=== PATIENT | male | born 1975 | race American Indian/Alaskan Native ===

== ENCOUNTER 2018-10-30 18:35 | Emergency (ER) | payer SELFPAY ==
[2018-10-30] MEDS ORDERED: NACL 0.9% 1000 ML 1,000 ML IV ONE (18:41)
[2018-10-30 19:06] LABS: Basophils # (Auto) 0.1 K/mm3 (0.0-0.1); Eosinophils % (Auto) 0.2 % (0.0-4.3); Hematocrit 39.7 % (35.5-45.6); Hemoglobin 13.7 gm/dl (11.8-15.2); Lymphocytes # (Auto) 2.2 K/mm3 (1.2-5.4); Lymphocytes % (Auto) 18.7 % (13.4-35.0); Mean Corpuscular HGB Conc 35 % (32-34); Mean Corpuscular Hemoglobin 31 pg (28-32); Mean Corpuscular Volume 88 fl (84-94); Monocytes # (Auto) 0.6 K/mm3 (0.0-0.8); Monocytes % (Auto) 4.7 % (0.0-7.3); Platelet Count 350 K/mm3 (140-440); Red Blood Count 4.51 M/mm3 (3.65-5.03); Red Cell Distribution Width 12.8 % (13.2-15.2)
[2018-10-30 19:21] LABS: Alanine Aminotransferase 46 units/L (7-56); Albumin 4.9 g/dL (3.9-5); BUN/Creatinine Ratio 7; Blood Urea Nitrogen 7 mg/dL (9-20); Calcium 9.6 mg/dL (8.4-10.2); Hemolysis Index 5
[2018-10-30] MEDS ORDERED: ZOFRAN IV ONE (19:37)
[2018-10-30] MEDS ORDERED: DILAUDID IV ONE (19:37)
[2018-10-30] MEDS ORDERED: TORADOL IV ONE (19:37)
--- NOTE | 2018-10-30 19:38 | Emergency Department Report ---
ED General Adult HPI - General Chief complaint: Abdominal Pain Stated complaint: FLANK PAIN Time Seen by Provider: 10/30/18 19:37 Source: patient, RN notes reviewed Mode of arrival: Ambulatory Limitations: No Limitations - History of Present Illness Initial comments: This is a 44-year-old gentleman who is not known to this provider previously, but does not have a local primary care doctor, who denies chronic medical conditions, who presents to the ER with a complaint of nontraumatic right-sided back and flank pain. It started a few hours ago. It is intermittent. It radiates down to the right flank. There is nausea, vomiting, sweating. Patient thinks he may have had a fever, but does not have a documented fever per se. He denies testicular pain, and urinary symptoms. He denies headache, neck pain, chest pain, extremity weakness, numbness. He reports that he feels very anxious, he is not sure if he's ever had an episode of renal colic in the past. -: Gradual Radiation: flank Consistency: intermittent Improves with: none Worsens with: none Associated Symptoms: diaphoresis, fever/chills, loss of appetite, malaise, nausea/vomiting, weakness. denies: confusion, chest pain, cough, headaches, rash, seizure, shortness of breath, syncope - Related Data Previous Rx's Medication Instructions Recorded Last Taken Type Acetaminophen [Tylenol Arthritis] 650 mg PO Q6HR PRN #30 tablet.er 10/30/18 Unknown Rx Ketorolac [Toradol] 10 mg PO Q6H PRN #20 tablet 10/30/18 Unknown Rx Ondansetron [Zofran Odt] 4 mg PO Q8HR PRN #20 tab.rapdis 10/30/18 Unknown Rx Tamsulosin [Flomax] 0.4 mg PO QDAY #30 cap 10/30/18 Unknown Rx Allergies Allergy/AdvReac Type Severity Reaction Status Date / Time No Known Allergies Allergy Unverified 10/30/18 18:41 ED Review of Systems ROS: Stated complaint: FLANK PAIN Other details as noted in HPI Constitutional: fever, weakness Eyes: denies: eye discharge ENT: denies: epistaxis Respiratory: denies: cough Cardiovascular: denies: chest pain Gastrointestinal: abdominal pain, nausea, vomiting Genitourinary: denies: testicular pain Musculoskeletal: back pain Skin: denies: lesions Neurological: weakness Psychiatric: anxiety ED Past Medical Hx - Surgical History Past Surgical History?: No - Social History Smoking Status: Never Smoker - Medications Home Medications: Home Medications Medication Instructions Recorded Confirmed Last Taken Type Acetaminophen [Tylenol Arthritis] 650 mg PO Q6HR PRN #30 tablet.er 10/30/18 Unknown Rx Ketorolac [Toradol] 10 mg PO Q6H PRN #20 tablet 10/30/18 Unknown Rx Ondansetron [Zofran Odt] 4 mg PO Q8HR PRN #20 tab.rapdis 10/30/18 Unknown Rx Tamsulosin [Flomax] 0.4 mg PO QDAY #30 cap 10/30/18 Unknown Rx ED Physical Exam - General Limitations: No Limitations General appearance: alert, in distress - Head Head exam: Present: atraumatic, normocephalic - Eye Eye exam: Present: normal appearance - ENT ENT exam: Present: normal exam, normal orophraynx, mucous membranes moist, normal external ear exam - Neck Neck exam: Present: normal inspection, full ROM. Absent: tenderness, meningismus - Respiratory Respiratory exam: Present: normal lung sounds bilaterally. Absent: respiratory distress, wheezes, rales, rhonchi, stridor, chest wall tenderness, decreased breath sounds - Cardiovascular Cardiovascular Exam: Present: normal rhythm, tachycardia, normal heart sounds. Absent: systolic murmur, diastolic murmur, rubs, gallop - GI/Abdominal GI/Abdominal exam: Present: soft, tenderness, other (there is right flank tenderness.). Absent: distended, guarding, rebound, rigid, pulsatile mass - Rectal Rectal exam: Present: deferred - exam: Present: normal inspection, other (there is no testicular tenderness. There is normal testicular lie bilaterally. There is normal cremasteric reflex bilaterally.). Absent: testicular tenderness External exam: Present: normal external exam, other (chaperoned by nurse Julisa Price) - Extremities Exam Extremities exam: Present: normal inspection, full ROM, other (2+ pulses noted in the bilateral upper, lower extremities. Compartments soft. No long bony tenderness. The pelvis is stable.). Absent: pedal edema, joint swelling, calf tenderness - Back Exam Back exam: Present: normal inspection, full ROM, CVA tenderness (R). Absent: tenderness, CVA tenderness (L), muscle spasm, paraspinal tenderness, vertebral tenderness - Neurological Exam Neurological exam: Present: alert, oriented X3, other (Extraocular movements intact. Tongue midline. No facial droop. Facial sensation intact to light touch in the V1, V2, V3 distribution bilaterally. 5 and 5 strength in 4 extremities.. Sensation is intact to light touch in 4 extremities.). Absent: motor sensory deficit - Psychiatric Psychiatric exam: Present: normal affect, normal mood - Skin Skin exam: Present: warm, dry, intact, normal color. Absent: rash ED Course Vital Signs 10/30/18 10/30/18 10/30/18 18:37 20:00 20:30 Temperature 97.6 F Pulse Rate 115 H 110 H 109 H Respiratory 19 21 Rate Blood Pressure 149/88 127/81 127/86 O2 Sat by Pulse 96 99 99 Oximetry 10/30/18 10/30/18 21:00 21:30 Temperature Pulse Rate 105 H 106 H Respiratory 16 20 Rate Blood Pressure 140/93 140/93 O2 Sat by Pulse 100 100 Oximetry - Reevaluation(s) Reevaluation #1: 10/30/18 20:13 Differential diagnosis, including but not limited to: Renal colic, perforated viscus, AAA Assessment and plan: 43-year-old male with right-sided flank pain, CVA tenderness, nausea, hypertension, suspect initial episode of renal colic. Laboratory studies reviewed and appreciated, noncontrast CT scan of the abdomen and pelvis is ordered, urinalysis is pending. Reevaluation #2: 10/30/18 21:20 Patient reports feeling much improved. His belly is soft on repeat exam. He is currently playing on a cellular phone, and speaking to a friends/family member about automobile interests. Noncontrast CT scan of the abdomen and pelvis confirms right-sided renal colic, with stone in the bladder, likely recently passed from the right ureter. We are currently awaiting urinalysis, and the patient is currently tolerating liquid feeds. Reevaluation #3: 10/30/18 22:17 Resting comfortably and in no acute distress. Tolerating liquid feeds. Multiple requests made by this provider for urinalysis, urine sample. We are currently awaiting a urine sample. Reevaluation #4: 10/30/18 22:42 Urinalysis, consistent with infectious etiology. We will discharge patient at this time. Patient has been reevaluated multiple times while in this department, appears to be quite comfortable, tolerating liquid feeds, playing on a cellular phone, he is medically suitable to follow up with an outpatient urologist. ED Medical Decision Making - Lab Data Result diagrams: 10/30/18 18:57 10/30/18 18:57 Vital Signs 10/30/18 18:37 Temperature 97.6 F Pulse Rate 115 H Blood Pressure 149/88 O2 Sat by Pulse 96 Oximetry Lab Results 10/30/18 10/30/18 10/30/18 Range/Units 18:57 18:57 19:41 WBC 11.9 H (4.5-11.0) K/mm3 RBC 4.51 (3.65-5.03) M/mm3 Hgb 13.7 (11.8-15.2) gm/dl Hct 39.7 (35.5-45.6) % MCV 88 (84-94) fl MCH 31 (28-32) pg MCHC 35 H (32-34) % RDW 12.8 L (13.2-15.2) % Plt Count 350 (140-440) K/mm3 Lymph % (Auto) 18.7 (13.4-35.0) % Ector % (Auto) 4.7 (0.0-7.3) % Eos % (Auto) 0.2 (0.0-4.3) % Baso % (Auto) 1.0 (0.0-1.8) % Lymph # 2.2 (1.2-5.4) K/mm3 Ector # 0.6 (0.0-0.8) K/mm3 Eos # 0.0 (0.0-0.4) K/mm3 Baso # 0.1 (0.0-0.1) K/mm3 Seg Neutrophils % 75.4 H (40.0-70.0) % Seg Neutrophils # 9.0 H (1.8-7.7) K/mm3 Sodium 141 (137-145) mmol/L Potassium 3.2 L (3.6-5.0) mmol/L Chloride 99.4 (98-107) mmol/L Carbon Dioxide 26 (22-30) mmol/L Anion Gap 19 mmol/L BUN 7 L (9-20) mg/dL Creatinine 1.0 (0.8-1.5) mg/dL Estimated GFR > 60 ml/min BUN/Creatinine Ratio 7 % Glucose 153 H (75-100) mg/dL Calcium 9.6 (8.4-10.2) mg/dL Magnesium 2.10 (1.7-2.3) mg/dL Total Bilirubin 0.30 (0.1-1.2) mg/dL AST 36 (5-40) units/L ALT 46 (7-56) units/L Alkaline Phosphatase 63 (35-129) units/L Total Creatine Kinase 555 H (55-170) units/L Total Protein 8.1 (6.3-8.2) g/dL Albumin 4.9 (3.9-5) g/dL Albumin/Globulin Ratio 1.5 % - Radiology Data Radiology results: pending Critical care attestation.: If time is entered above; I have spent that time in minutes in the direct care of this critically ill patient, excluding procedure time. ED Disposition Clinical Impression: Renal colic on right side Disposition: DC-01 TO HOME OR SELFCARE Is pt being admited?: No Does the pt Need Aspirin: No Condition: Good Instructions: Renal Colic (ED) Additional Instructions: Symptoms are likely due to kidney stone on the right-hand side. Stone is currently in the bladder. It is likely to pass on its own. Take the medications as needed/directed. Drink 6-8 cups of water per day. CT scan also demonstrated potential fatty changes in the liver, therefore, patient should limit intake of alcohol, and fatty foods. Follow-up with the urologist or primary care doctor within the next month. Return to the ER right away with recurrent pain, lethargy, projectile vomiting, change in mental status, confusion, inability to speak, inability to breathe. Prescriptions: Acetaminophen [Tylenol Arthritis] 650 mg PO Q6HR PRN #30 tablet.er PRN Reason: Pain Ketorolac [Toradol] 10 mg PO Q6H PRN #20 tablet PRN Reason: Pain Ondansetron [Zofran Odt] 4 mg PO Q8HR PRN #20 tab.rapdis PRN Reason: Nausea Tamsulosin [Flomax] 0.4 mg PO QDAY #30 cap Referrals: JAKE JOHNSON MD [Staff Physician] - 3-5 Days
[2018-10-30] MEDS ORDERED: K-DUR PO ONE ×2 (20:14→22:03)
--- NOTE | 2018-10-30 21:17 | Cat Scan Report ---
FINAL REPORT PROCEDURE: CT abdomen and pelvis without contrast. TECHNIQUE: Computerized axial tomography of the abdomen and pelvis was performed without intravenous contrast. This study is performed without intravascular contrast material and its sensitivity for ab dominal and pelvic pathology, including neoplasms, inflammation, abscess, free fluid, thrombosis, art erial dissection and infarction, is reduced compared with a contrast enhanced study. HISTORY: Right-sided renal colic. COMPARISON: No prior studies are available for comparison. FINDINGS: The lung bases are clear. There are no pleural effusions. The heart size is normal. There may be mild fatty metamorphosis of the liver. The gallbladder is present. There is no biliary dilatation. The pa ncreas and spleen appear normal. The adrenal glands are not enlarged. Both kidneys appear normal in s ize and configuration. The abdominal aorta has a normal caliber. There is no retroperitoneal adenopat hy. The unopacified gastrointestinal tract is unremarkable. The appendix has probably been removed. T here is a calculus in the right side of the bladder measuring 4.2 millimeters. This may have been rec ently passed from the right ureter. The seminal vesicles and prostate appear normal. The regional ske leton appears intact. IMPRESSION: 4.2 millimeter diameter calculus in the right side of the bladder. Question mild fatty metamorphosis of the liver.
[2018-10-30 21:53] VITALS: BP 140/93
[2018-10-30] MEDS: KCL 10MEQ/100ML 10 MEQ/100 ML BAG IV SCH (22:08)
[2018-10-30 22:35] LABS: Bilirubin,Urine NEG (Negative); Blood,Urine NEG (Negative); Color,Urine Yellow (Yellow); Mucus,Urine FEW /HPF; Protein,Urine <15 mg/dL mg/dL (Negative); Urobilinogen,Urine < 2.0 mg/dL (<2.0)
== END 2018-10-30 22:56 | disposition home or self-care (01) ==
LOC: ED 18:35
DX: N23 Unspecified renal colic (principal); F41.9 Anxiety disorder, unspecified
CPT/HCPCS: 36415; 74176; 80053; 81001; 82550; 83735; 85025; 96361; 96374; 96375; 99284; J1170; J1885; J2405; J3480; J7030